=== PATIENT | female | born 1995 | race Caucasian/White ===

== ENCOUNTER 2017-05-21 16:28 | Emergency (ER) | payer OTHER ==
[2017-05-21 18:23] VITALS: BP 112/75
== END 2017-05-21 18:23 | disposition home or self-care (01) ==
LOC: ED 16:28
DX: S00.262A Insect bite (nonvenomous) of left eyelid and periocular area, initial encounter (principal); R11.10 Vomiting, unspecified; W57.XXXA Bitten or stung by nonvenomous insect and other nonvenomous arthropods, initial encounter; Y93.89 Activity, other specified; Y99.8 Other external cause status; Y92.89 Other specified places as the place of occurrence of the external cause
CPT/HCPCS: J0696; J7512

== ENCOUNTER 2018-01-01 17:54 | Emergency (ER) | payer OTHER | END 2018-01-01 19:04 | disposition left against medical advice (07) | LOC: ED 17:54 | DX: Z53.21 Procedure and treatment not carried out due to patient leaving prior to being seen by health care provider (principal) ==

== ENCOUNTER 2018-04-19 11:28 | Emergency (ER) | payer MEDICAID ==
[~2018-04-19] VITALS: Ht 157.5 cm; Wt 50.6 kg
[2018-04-19 11:46] VITALS: BP 124/69; Ht 157.5 cm; Wt 50.6 kg
[2018-04-19 13:31] LABS: BASOPHIL % 0.1 % (0-2); PLATELET COUNT 291 x10^3mcL (130-400); RED CELL DISTRIBUTION WIDTH 13.7 % (11.5-14.5)
[2018-04-19 13:37] LABS: ALBUMIN 4.2 g/dL (3.4-5.0); ALKALINE PHOSPHATASE 87 U/L (46-116); ALT/SGPT 18 U/L (14-59); AST/SGOT 11 U/L (15-37); BILIRUBIN TOTAL 0.3 mg/dL (0.20-1.00); CALCIUM 9.3 mg/dL (8.5-10.1); CARBON DIOXIDE 28.8 mmol/L (21-32); CHLORIDE SERUM 105 mmol/L (98-107); CREATININE SERUM 0.6 mg/dL (0.6-1.0); GFR1 > 60 mL/min; GLUCOSE SERUM 87 mg/dL (74-106); LIPASE 82 IU/L (73-393); POTASSIUM SERUM 4.3 mmol/L (3.5-5.1); SODIUM SERUM 142 mmol/L (136-145)
[2018-04-19 13:38] LABS: TOTAL PROTEIN, SERUM 8.4 g/dL (6.4-8.2)
== END 2018-04-19 14:00 | disposition home or self-care (01) ==
LOC: ED 11:28
PROVIDERS: Emergency Medicine
DX: N94.6 Dysmenorrhea, unspecified (principal); Z88.5 Allergy status to narcotic agent; N83.202 Unspecified ovarian cyst, left side
CPT/HCPCS: 36415

== ENCOUNTER 2018-06-04 18:34 | Emergency (ER) | payer MEDICAID ==
[~2018-06-04] VITALS: Ht 157.5 cm; Wt 51.7 kg
[2018-06-04 18:42] VITALS: Ht 157.5 cm; Wt 51.7 kg
[2018-06-04 20:38] VITALS: BP 133/90
== END 2018-06-04 20:38 | disposition home or self-care (01) ==
LOC: ED 18:34
DX: F41.0 Panic disorder [episodic paroxysmal anxiety] (principal); K21.9 Gastro-esophageal reflux disease without esophagitis; Z88.5 Allergy status to narcotic agent
CPT/HCPCS: Q0162

== ENCOUNTER 2018-08-21 11:01 | Inpatient (IN) | payer MEDICAID ==
[~2018-08-21] VITALS: Ht 157.5 cm; Wt 54.0 kg
[2018-08-21 11:14] VITALS: Ht 157.5 cm; Wt 54.0 kg
[2018-08-21 13:54] LABS: BASOPHIL % 0.2 % (0-2); PLATELET COUNT 316 x10^3mcL (130-400); RED CELL DISTRIBUTION WIDTH 13.5 % (11.5-14.5)
[2018-08-21 14:04] LABS: CALCIUM 8.8 mg/dL (8.5-10.1); CARBON DIOXIDE 24.1 mmol/L (21-32); CHLORIDE SERUM 108 mmol/L (98-107); CREATININE SERUM 0.6 mg/dL (0.6-1.0); GFR1 > 60 mL/min; GLUCOSE SERUM 93 mg/dL (74-106); POTASSIUM SERUM 3.5 mmol/L (3.5-5.1); SODIUM SERUM 141 mmol/L (136-145)
[2018-08-21 14:09] LABS: ALBUMIN 3.8 g/dL (3.4-5.0); ALKALINE PHOSPHATASE 70 U/L (46-116); ALT/SGPT 23 U/L (14-59); AMYLASE 89 U/L (25-115); LIPASE 302 IU/L (73-393); TOTAL PROTEIN, SERUM 7.7 g/dL (6.4-8.2)
[2018-08-21 14:20] LABS: AST/SGOT 15 U/L (15-37)
[2018-08-21 16:31] LABS: microscopic required? NO
[2018-08-21 16:39] LABS: MAGNESIUM 1.9 mg/dL (1.8-2.4); PHOSPHOROUS 3.6 mg/dL (2.5-4.9)
[2018-08-21 16:40] LABS: CHOLESTEROL/HDL RATIO 2.5
[2018-08-21 16:55] LABS: urine erythrocyte NEGATIVE (NEGATIVE)
[2018-08-21 16:56] VITALS: BP 117/69
[2018-08-21 17:05] LABS: AMPHETAMINE QUAL UR NONE DETECTED (See below)
[2018-08-21 18:54] LABS: FREE THYROXINE INDEX 2.3 ug/dL (1.4-4.5); T4(THYROXINE) 6.7 ug/dL (4.7-13.3)
[2018-08-21 21:57] VITALS: BP 113/55
[2018-08-22 06:07] VITALS: BP 107/54
[2018-08-22 06:17] LABS: BASOPHIL % 0.3 % (0-2); PLATELET COUNT 257 x10^3mcL (130-400); RED CELL DISTRIBUTION WIDTH 13.4 % (11.5-14.5)
[2018-08-22 06:40] LABS: CALCIUM 8.6 mg/dL (8.5-10.1); CARBON DIOXIDE 22.7 mmol/L (21-32); CHLORIDE SERUM 109 mmol/L (98-107); CREATININE SERUM 0.7 mg/dL (0.6-1.0); GFR1 > 60 mL/min; GLUCOSE SERUM 92 mg/dL (74-106); POTASSIUM SERUM 3.8 mmol/L (3.5-5.1); SODIUM SERUM 142 mmol/L (136-145)
[2018-08-22 08:30] VITALS: BP 104/61
[2018-08-22 15:55] VITALS: BP 118/71
[2018-08-22 21:18] VITALS: BP 130/74
[2018-08-23 06:12] LABS: BASOPHIL % 0.8 % (0-2); PLATELET COUNT 246 x10^3mcL (130-400); RED CELL DISTRIBUTION WIDTH 13.5 % (11.5-14.5)
[2018-08-23 06:35] VITALS: BP 107/69
[2018-08-23 06:38] LABS: CALCIUM 8.8 mg/dL (8.5-10.1); CARBON DIOXIDE 22.3 mmol/L (21-32); CHLORIDE SERUM 110 mmol/L (98-107); CREATININE SERUM 0.6 mg/dL (0.6-1.0); GFR1 > 60 mL/min; GLUCOSE SERUM 82 mg/dL (74-106); PHOSPHOROUS 4.3 mg/dL (2.5-4.9); POTASSIUM SERUM 3.9 mmol/L (3.5-5.1); SODIUM SERUM 143 mmol/L (136-145)
[2018-08-23 08:34] VITALS: BP 106/60
[2018-08-23 10:05] LABS: HELICOBACTER PYLORI IGG QNT 0.26 (0.00-0.79)
[2018-08-23 18:32] VITALS: BP 108/54
[2018-08-23 21:05] VITALS: BP 106/60
== END 2018-08-23 22:58 | disposition left against medical advice (07) | DRG 241 ==
LOC: ED 11:01 → MU 16:01
PROVIDERS: Internal Medicine; Specialist
PROC: 0DB78ZX Excision of Stomach, Pylorus, Via Natural or Artificial Opening Endoscopic, Diagnostic (ICD-10-PCS; principal; 2018-08-23 12:45)
DX: K29.70 Gastritis, unspecified, without bleeding (principal); F12.10 Cannabis abuse, uncomplicated; N83.201 Unspecified ovarian cyst, right side; F41.9 Anxiety disorder, unspecified; Z68.20 Body mass index [BMI] 20.0-20.9, adult
CPT/HCPCS: 43235; 84439; J1200; J1610; J1885; J2250; J2310; J2405; J2543; J3010; J3490; J7030; Q0092